=== PATIENT | male | born 1975 | race Caucasian/White ===

== ENCOUNTER 2018-09-14 13:03 | Emergency (ER) | payer SELFPAY ==
[2018-09-14] MEDS ORDERED: Ondansetron 4 MG/2 ML SDV IVPUSH ONE (13:06)
[2018-09-14] MEDS ORDERED: LORazepam 2 MG/ML SDV IVPUSH ONE ×2 (13:06→14:57)
[2018-09-14] MEDS ORDERED: Morphine 2 MG/ML Syringe IVPUSH PRN (13:11)
--- NOTE | 2018-09-14 13:17 | EDM.PDOC ---
ED HPI GENERAL MEDICAL PROBLEM - General Chief Complaint: Chest Pain Stated Complaint: [facility] Time Seen by Provider: 09/14/18 13:13 Source of Information: Reports: Patient, RN Notes Reviewed History Limitations: Reports: No Limitations - History of Present Illness INITIAL COMMENTS - FREE TEXT/NARRATIVE: 43-year-old gentleman presents emergency department today complaint of chest pain, he is currently at [facility] for alcohol withdrawal arrived by EMS services, states he awoke this morning with chest pain and has been ongoing for the last 6 hours. He states he had a myocardial infarction 3 weeks ago while in [place] however he does not recall any stenting process or angiogram states he was only treated with medications for about a week. He is nauseated he feels short of breath he has dyspnea on exertion no significant diaphoresis Chest Pain Score (Numeric/FACES): 6 - Related Data Allergies Allergy/AdvReac Type Severity Reaction Status Date / Time No Known Allergies Allergy Verified 09/14/18 13:13 Past Medical History - Past Health History Medical/Surgical History: Denies Medical/Surgical History Social & Family History - Tobacco Use Smoking Status *Q: Never Smoker - Recreational Drug Use Recreational Drug Use: No ED ROS GENERAL - Review of Systems Review Of Systems: See Below Constitutional: Reports: No Symptoms. Denies: Diaphoresis HEENT: Reports: No Symptoms Respiratory: Reports: Shortness of Breath Cardiovascular: Reports: Chest Pain, Dyspnea on Exertion GI/Abdominal: Reports: Nausea, Vomiting : Reports: No Symptoms Musculoskeletal: Reports: No Symptoms Skin: Reports: No Symptoms Neurological: Reports: No Symptoms ED EXAM, GENERAL - Physical Exam Exam: See Below Exam Limited By: No Limitations General Appearance: Alert, WD/WN, Other (Tremors consistent with alcoholic withdrawal) Eye Exam: Bilateral Eye: Normal Inspection Head: Atraumatic, Normocephalic Neck: Normal Inspection, Supple, Non-Tender, Full Range of Motion Respiratory/Chest: No Respiratory Distress, Lungs Clear, Normal Breath Sounds, No Accessory Muscle Use, Chest Non-Tender Cardiovascular: Regular Rate, Rhythm, No Murmur GI/Abdominal: Soft, Non-Tender Back Exam: Normal Inspection, Full Range of Motion Extremities: Non-Tender, No Pedal Edema Course - Vital Signs Last Recorded V/S: Last Vital Signs Temp 95.8 F 09/14/18 13:07 Pulse 75 09/14/18 15:10 Resp 15 09/14/18 15:10 BP 133/90 09/14/18 15:10 Pulse Ox 93 L 09/14/18 15:10 - Orders/Labs/Meds Orders: Active Orders 24 hr Category Date Time Status Cardiac Monitoring [RC] .As Directed Care 09/14/18 13:11 Active Morphine Med 09/14/18 13:11 Active 2 mg IVPUSH Q10M PRN Sodium Chloride 0.9% [Normal Saline] 1,000 ml Med 09/14/18 14:45 Active IV ASDIRECTED Medication Orders Sodium Chloride (Normal Saline) 1,000 mls @ 999 mls/hr IV ASDIRECTED RACHEL Last Admin: 09/14/18 14:53 Dose: 999 mls/hr Morphine Sulfate (Morphine) 2 mg IVPUSH Q10M PRN PRN Reason: Chest Pain Stop: 09/15/18 13:12 Last Admin: 09/14/18 13:58 Dose: 2 mg Labs: Laboratory Tests 09/14/18 09/14/18 Range/Units 13:27 13:27 WBC 4.6 (4.5-11.0) K/uL RBC 4.29 L (4.30-5.90) M/uL Hgb 11.3 L (12.0-15.0) g/dL Hct 35.7 L (40.0-54.0) % MCV 83 (80-98) fL MCH 26 L (27-31) pg MCHC 32 (32-36) % Plt Count 108 L (150-400) K/uL Neut % (Auto) 77 H (36-66) % Lymph % (Auto) 16 L (24-44) % [place] % (Auto) 6 (2-6) % Eos % (Auto) 1 L (2-4) % Baso % (Auto) 0 (0-1) % Sodium 142 (140-148) mmol/L Potassium 3.5 L (3.6-5.2) mmol/L Chloride 107 (100-108) mmol/L Carbon Dioxide 26 (21-32) mmol/L Anion Gap 12.5 (5.0-14.0) mmol/L BUN 13 (7-18) mg/dL Creatinine 1.0 (0.8-1.3) mg/dL Est Cr Clr Drug Dosing 99.36 mL/min Estimated GFR (MDRD) > 60 (>60) Glucose 135 H (74-106) mg/dL Calcium 8.4 L (8.5-10.1) mg/dL Total Bilirubin 0.9 (0.2-1.0) mg/dL AST 58 H (15-37) U/L ALT 56 (12-78) U/L Alkaline Phosphatase 124 H (46-116) U/L Troponin I < 0.017 (0.000-0.056) ng/mL Total Protein 5.7 L (6.4-8.2) g/dL Albumin 2.9 L (3.4-5.0) g/dL Globulin 2.8 (2.3-3.5) g/dL Albumin/Globulin Ratio 1.0 L (1.2-2.2) Meds: Medications Generic Name Dose Route Start Last Admin Trade Name Freq PRN Reason Stop Dose Admin Sodium Chloride 1,000 mls @ 999 mls/hr 09/14/18 14:45 09/14/18 14:53 Normal Saline IV 999 mls/hr ASDIRECTED RACHEL Administration Morphine Sulfate 2 mg 09/14/18 13:11 09/14/18 13:58 Morphine IVPUSH 09/15/18 13:12 2 mg Q10M PRN Administration Chest Pain Discontinued Medications Generic Name Dose Route Start Last Admin Trade Name Freq PRN Reason Stop Dose Admin Al Hydroxide/Mg Hydroxide 15 0 ml 09/14/18 14:31 09/14/18 14:54 ml/ Lidocaine HCl 15 ml PO 09/14/18 14:32 30 ml ONETIME ONE Administration Lorazepam 1 mg 09/14/18 13:06 09/14/18 13:51 Ativan IVPUSH 09/14/18 13:07 1 mg ONETIME ONE Administration Lorazepam 1 mg 09/14/18 14:57 09/14/18 15:21 Ativan IVPUSH 09/14/18 14:58 1 mg ONETIME ONE Administration Ondansetron HCl 4 mg 09/14/18 13:06 09/14/18 13:50 Zofran IVPUSH 09/14/18 13:07 4 mg ONETIME ONE Administration - Re-Assessments/Exams Free Text/Narrative Re-Assessment/Exam: 09/14/18 15:13 heart score is 2 Departure - Departure Time of Disposition: 16:01 Disposition: Home, Self-Care 01 Condition: Fair Clinical Impression: GERD (gastroesophageal reflux disease) Qualifiers: Esophagitis presence: esophagitis presence not specified Qualified Code(s): K21.9 - Gastro-esophageal reflux disease without esophagitis Referrals: PCP,None [Primary Care Provider] - Forms: ED Department Discharge Additional Instructions: Recommend starting Zantac 150 mg twice a day, please return to [place] for completion of treatment and follow-up with primary care upon return home - My Orders Last 24 Hours: My Active Orders 09/14/18 13:11 Cardiac Monitoring [RC] .As Directed Morphine 2 mg IVPUSH Q10M PRN 09/14/18 14:45 Sodium Chloride 0.9% [Normal Saline] 1,000 ml IV ASDIRECTED - Assessment/Plan Last 24 Hours: My Active Orders 09/14/18 13:11 Cardiac Monitoring [RC] .As Directed Morphine 2 mg IVPUSH Q10M PRN 09/14/18 14:45 Sodium Chloride 0.9% [Normal Saline] 1,000 ml IV ASDIRECTED Plan: Assessment Acuity = acute Site and laterality = gastroesophageal reflux disease Etiology = probably alcohol-related Manifestations = epigastric pain Location of injury = Home Lab values = CBC, CMP unremarkable troponin was negative EKG demonstrates normal sinus rhythm chest x-ray no acute process Plan He received minimal relief from nitroglycerin other than a headache was exacerbated, morphine provided no relief he receive good relief from a GI cocktail plan start Zantac 150 mg by mouth twice a day he will return to [place] detoxification for the next couple of days, follow up with primary care upon return home This note was dictated using miiCard voice recognition software please call with any questions on syntax or grammar.
--- NOTE | 2018-09-14 14:26 | CRLCR ---
INDICATION: Chest Pain TECHNIQUE: Chest 2 views. COMPARISON: None. FINDINGS: Cardiovascular and mediastinum: Heart size and vasculature are normal in caliber and appearance. Mediastinum is within normal limits. Lungs and pleural spaces: Lungs are clear. No sign of infiltrate or mass. No sign of pleural effusion. No pneumothorax. Bones and soft tissues: No significant findings. IMPRESSION: Unremarkable chest. Dictated by: Rafa Braga MD @ 09/14/2018 14:24:06 (Electronically Signed)
[2018-09-14] MEDS ORDERED: Alum Hydrox/Mag Hydrox/Simeth 15 ML, Lidocaine 2% 15 ML PO ONE ×2 (14:31)
[2018-09-14] MEDS ORDERED: Sodium Chloride 0.9% 1,000 ML IV SCH (14:45)
== END 2018-09-14 16:50 | disposition home or self-care (01) ==
LOC: JP.ED 13:03
DX: K21.9 Gastro-esophageal reflux disease without esophagitis (principal)
CPT/HCPCS: 36415; 71046; 80053; 84484; 85025; 96361; 96374; 96375; 96376; 99285; A9270; J2060; J2270; J2405; J7030